=== PATIENT | female | born 1955 | race Caucasian/White ===

== ENCOUNTER 2016-12-29 16:50 | Emergency (ER) | payer SELFPAY ==
[2016-12-29 17:08] VITALS: BP 141/95; PULSE 53; TEMP 97.5; BMI 30.1
--- NOTE | 2016-12-29 17:08 | PDOC ---
Rapid Medical Evaluation Time Seen by Provider: 12/29/16 17:03 Medical Evaluation: 12/29/16 17:04 I have performed a brief in-person evaluation of this patient. The patient presents with a chief complaint of: back pain non traumatic Pertinent physical exam findings: uncomfortable. hx prolapsed uterus, ambulatory , no parathesias I have ordered the following: cbc, cmp, ua The patient will proceed to the ED for further evaluation. Discharge Disposition - Diagnosis Back pain Qualifiers: Back pain location: back pain in unspecified location Chronicity: acute Back pain laterality: unspecified Qualified Code(s): M54.9 - Dorsalgia, unspecified - Referrals - Patient Instructions - Post Discharge Activity
[2016-12-29 17:43] LABS: BASOPHIL 0.5 % (0-2.0); EOSINOPHIL 2.5 % (0-4.5); MCH 31.7 pg (25.7-33.7); MCHC 33.8 g/dl (32.0-36.0); MEAN CELL VOLUME 93.9 fl (80-96); MEAN PLT VOLUME 8.3 fl (7.5-11.1); NEUTROPHILS 57.7 % (42.8-82.8); PLATELET COUNT 275 K/MM3 (134-434); RDW 13.4 % (11.6-15.6); WHITE BLOOD COUNT 6.2 K/mm3 (4.0-10.0)
[2016-12-29 17:54] LABS: URINE APPEARANCE CLEAR; URINE BILIRUBIN NEGATIVE (NEGATIVE); URINE BLOOD NEGATIVE (NEGATIVE); URINE COLOR STRAW; URINE GLUCOSE (UA) NEGATIVE (NEGATIVE); URINE KETONE NEGATIVE (NEGATIVE); URINE NITRITE NEGATIVE (NEGATIVE); URINE PROTEIN NEGATIVE (NEGATIVE); URINE UROBILINOGEN NEGATIVE mg/dL (0.2-1.0)
--- NOTE | 2016-12-29 18:07 | PDOC ---
History of Present Illness - General Chief Complaint: Pain Stated Complaint: BACK PAIN Time Seen by Provider: 12/29/16 17:03 - History of Present Illness Initial Comments: 12/29/16 18:07 CHIEF COMPLAINT: low back pain HISTORY OF PRESENT ILLNESS: 61 yo F with hx of uterine prolapse, "borderline diabetes" presents to [facility] with low back pain x 1 week. 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 Her pain started prior to her travels but worsened after the train ride over here. Patient reports the pain is worse when twisting her torso and when getting up from a seated position. She denies any loss of sensation to her lower extremities or any loss of bowel or bladder function. PAST MEDICAL HISTORY: Denies past medical history FAMILY HISTORY: Denies SOCIAL HISTORY:Denies tobacco, alcohol, illicit drug use. SURGICAL HISTORY: Denies ALLERGIES: No known drug allergies REVIEW OF SYSTEMS General/Constitutional: Denies fever or chills. Denies weakness. HEENT: Denies change in vision. Denies ear pain or discharge. Denies sore throat. Cardiovascular: Denies chest pain or shortness of breath. Respiratory: Denies cough, wheezing, or hemoptysis. Gastrointestinal: Denies loss of bowel or bladder finction. Denies nausea, vomiting, diarrhea. Genitourinary: Denies dysuria, frequency, or change in urination. Musculoskeletal: Low back pain x 1 week worse with movement. Skin: Denies rash or easy bruising. Neurologic: Denies headache, vertigo, loss of consciousness, or loss of sensation. PHYSICAL EXAM General Appearance: Well-appearing, appropriately dressed. No apparent distress. HEENT: EOMI, PERRLA. No conjunctival pallor. No photophobia, scleral icterus. Respiratory/Chest: Lungs CTAB. Cardiovascular: RRR. S1, S2. Vascular Pulses: Dorsalis-Pedis (R): 2+, Dorsalis-Pedis (L): 2+ Gastrointestinal/Abdominal: Normal bowel sounds. Abdomen soft, non-distended. No tenderness or rebound tenderness. No organomegaly, pulsatile mass, guarding , hernia, hepatomegaly, splenomegaly. Musculoskeletal/Extremities: Reproducible tenderness with palpation to low back over muscles lateral to b/l sides of spine. Sensory discrimination intact to lower extremities b/l. FROM of all extremities, normal capillary refill. Pelvis Stable. No CVA tenderness. No tenderness to extremities, pedal edema, swelling, erythema or deformity. Integumentary: Appropriate color, dry, warm. No cyanosis, erythema, jaundice or rash Neurologic: marketing programs specialist II-XII intact. Fully oriented, alert. Appropriate mood/affect. Motor strength 5/5. No appreciable EOM palsy, facial droop or sensory deficit. Past History - Past Medical History Allergies/Adverse Reactions: Allergies Allergy/AdvReac Type Severity Reaction Status Date / Time No Known Allergies Allergy Verified 12/29/16 17:07 Home Medications: Ambulatory Orders Cyclobenzaprine HCl 7.5 mg PO HS PRN #5 tablet 12/29/16 Naproxen 250 mg PO BID #14 tablet 12/29/16 COPD: No Diabetes: No (diet controlled) - Suicide/Smoking/Psychosocial Hx Smoking History: Never smoked *Physical Exam - Vital Signs Last Vital Signs Temp Pulse Resp BP Pulse Ox 97.5 F L 53 L 20 141/95 99 12/29/16 17:04 12/29/16 17:04 12/29/16 17:04 12/29/16 17:04 12/29/16 17:04 ED Treatment Course - LABORATORY CBC & Chemistry Diagram: 12/29/16 18:10 Medical Decision Making - Medical Decision Making 12/29/16 18:29 61 yo F with hx of uterine prolapse, "borderline diabetes" presents to [facility] with low back pain x 1 week -60 mg Toradol -cyclobenzaprine and naproxen rx sent to pharm Advised patient to take medication as prescribed and follow up with orthopedics if pain persists past 3-5 daysd. Advised patient and son of signs and symptoms for return to ED. Patient verbalized understanding and agrees to plan. *DC/Admit/Observation/Transfer Diagnosis at time of Disposition: Back pain Qualifiers: Back pain location: back pain in unspecified location Chronicity: acute Back pain laterality: unspecified Qualified Code(s): M54.9 - Dorsalgia, unspecified - Discharge Dispostion Disposition: HOME Condition at time of disposition: Stable Admit: No - Prescriptions Prescriptions: Cyclobenzaprine HCl 7.5 mg PO HS PRN #5 tablet PRN Reason: muscle spasm Naproxen 250 mg PO BID #14 tablet - Referrals Referrals: Jagdeep Corral MD [Staff Physician] - - Patient Instructions Printed Discharge Instructions: DI for Low Back Pain, DI for Muscle Strain Additional Instructions: Please take medications as prescribed, do NOT drive, operate machinery, or drink alcohol while taking cyclobenzaprine. Follow up with orthopedics if symptoms persist past 3-5 days. If you develop ANY loss of sensation to your legs, loss of bowel or bladder function, inability to walk, or any new or worsening symptoms, please return to the ER. Labette los medicamentos segn lo recetado. NO maneje, opere maquinaria o ray alcohol mientras joaquín cyclobenzaprine. Corinne un seguimiento con ortopedia si los sntomas persisten despus de 3-5 frazier. Si desarrolla CUALQUIER prdida de sensibilidad en las piernas, prdida de la funcin intestinal o de la vejiga, incapacidad para caminar o cualquier sntoma nuevo o que empeora, vuelva a la tutu de emergencias. Print Language: NEPALI - Post Discharge Activity
[2016-12-29] MEDS ORDERED: KETOROLAC TROMETHAMINE 60 MG/2 ML VIAL IM ONE (18:21)
[2016-12-29] MEDS ORDERED: KETOROLAC TROMETHAMINE 60 MG/2 ML VIAL ONE (18:27)
[2016-12-29 18:28] LABS: ALBUMIN 3.7 g/dl (3.4-5.0); ALK PHOS 101 U/L (45-117); ANION GAP 6 (8-16); BILIRUBIN,TOTAL 0.8 mg/dL (0.2-1.0); CALCIUM 8.3 mg/dL (8.5-10.1); CO2 27 mmol/L (21-32); CREATININE 0.7 mg/dL (0.55-1.02); GLUCOSE,RANDOM 97 mg/dL (74-106); SGOT/AST 13 U/L (15-37); SGPT/ALT 30 U/L (12-78); TOT PROT 7.3 g/dl (6.4-8.2)
[2016-12-29 22:19] LABS: URINE LEUK ESTERASE 3+ (NEGATIVE)
[2016-12-30 00:27] LABS: URINE BACTERIA MOD /hpf (NEGATIVE)
== END 2016-12-29 18:37 | disposition home or self-care (01) ==
LOC: JERFT 16:50
PROC: 3E0233Z Introduction of Anti-inflammatory into Muscle, Percutaneous Approach (ICD-10-PCS; principal; 2016-12-29)
DX: M54.89 Other dorsalgia (principal); E11.9 Type 2 diabetes mellitus without complications
CPT/HCPCS: 36415; 80053; 81003; 81015; 85025; 99281-25

== ENCOUNTER 2020-07-16 06:03 | Inpatient (IN) | payer OTHER ==
[2020-07-16] MEDS ORDERED: SODIUM CHLORIDE 1,000 ML IV STA ×2 (07:44→12:38)
[2020-07-16] MEDS ORDERED: ONDANSETRON 4 MG/2 ML VIAL IVPUSH ONE (07:44)
[2020-07-16] MEDS ORDERED: ACETAMINOPHEN 1000 MG/100 ML VIAL (NON FORMULARY) IVPB ONE (07:44)
[2020-07-16] MEDS ORDERED: FAMOTIDINE 20 MG TABLET PO ONE (07:44)
[2020-07-16] MEDS ORDERED: ONDANSETRON 4 MG/2 ML VIAL ONE (07:50)
[2020-07-16] MEDS ORDERED: ACETAMINOPHEN INJECTION 100 ML IVPB ONE (07:50)
[2020-07-16] MEDS ORDERED: FAMOTIDINE 20 MG/50 ML IVPB 20 MG/50 ML MG IVPB ONE (07:50)
[2020-07-16 08:33] LABS: BASO % 0.3 % (0-2.0); EOS % 0.1 % (0-4.5); HEMATOCRIT 39.4 % (32.4-45.2); HEMOGLOBIN 13.2 GM/dL (10.7-15.3); LYMPH % 6.5 % (8-40); MCH 32.8 pg (25.7-33.7); MCHC 33.6 g/dl (32.0-36.0); MEAN CELL VOLUME 97.6 fl (80-96); MEAN PLT VOLUME 8.7 fl (7.5-11.1); MONO % 3.9 % (3.8-10.2); NEUT % 89.2 % (42.8-82.8); PLATELET COUNT 215 K/MM3 (134-434); RBC 4.04 M/mm3 (3.60-5.2); RDW 14.9 % (11.6-15.6); WHITE BLOOD COUNT 8.9 K/mm3 (4.0-10.0)
[2020-07-16 08:58] LABS: CHLORIDE 108 mmol/L (98-107); SODIUM 139 mmol/L (136-145)
[2020-07-16 09:01] LABS: CALCIUM 8.7 mg/dL (8.5-10.1)
[2020-07-16 09:03] LABS: ANION GAP 8 MMOL/L (8-16); BLOOD UREA NITROGEN 15.6 mg/dL (7-18); CO2 23 mmol/L (21-32); GLUCOSE,RANDOM 137 mg/dL (74-106)
[2020-07-16 09:05] LABS: CREATININE 0.6 mg/dL (0.55-1.3); SGPT/ALT 792 U/L (13-61)
[2020-07-16 09:06] LABS: BILIRUBIN,TOTAL 1.6 mg/dL (0.2-1)
[2020-07-16 09:07] LABS: TOT PROT 7.7 g/dl (6.4-8.2)
[2020-07-16 09:08] LABS: ALK PHOS 118 U/L (45-117)
[2020-07-16 09:13] LABS: LIPASE > 30000 U/L (73-393); SGOT/AST 1268 U/L (15-37)
[2020-07-16] MEDS ORDERED: MORPHINE SULFATE 2 MG/ML VIAL ONE ×2 (09:14→13:09)
[2020-07-16] MEDS ORDERED: morphine CARPU-JECT 4 MG/1 ML DISP.SYRIN IVPUSH ONE ×2 (09:17→13:05)
[2020-07-16 11:53] LABS: INR 1.03 (0.83-1.09); PROTHROMBIN TIME (PATIENT) 12.6 SEC (9.7-13.0)
[2020-07-16] MEDS ORDERED: PIPERACILLIN/TAZOB 3.375 GM 3.375 GM in DEXTROSE 5%-WATER - 50 ML IVPB ONE (12:39)
[2020-07-16 16:20] LABS: TRIGLYCERIDES 118 mg/dL (0-150)
[2020-07-16] MEDS: LACTATED RINGERS SOLUTION 1,000 ML/1,000 ML INFUS.BAG IV SCH ×2 (17:05→22:30)
[2020-07-16] MEDS ORDERED: ONDANSETRON 4 MG/2 ML VIAL IVPUSH PRN (17:58)
[2020-07-16] MEDS ORDERED: PIPERACILLIN/TAZOB 3.375 GM 3.375 GM in DEXTROSE 5%-WATER - 50 ML IVPB SCH (18:00)
[2020-07-16 18:09] VITALS: BMI 32.0
[2020-07-16] MEDS ORDERED: PIPERACILLIN/TAZOBACTAM 3.375 GM VIAL IVPB ONE (18:10)
[2020-07-16] MEDS ORDERED: DEXTROSE 5%-WATER - 50 ML IVPB ONE (18:11)
[2020-07-16] MEDS: MORPHINE SULFATE 2 MG/ML VIAL IVPUSH PRN (18:12)
[2020-07-16] MEDS: PIPERACILLIN/TAZOB 3.375 GM 3.375 GM in DEXTROSE 5%-WATER - 50 ML IVPB SCH (18:13)
[2020-07-16 20:26] LABS: HEMATOCRIT 33.5 % (32.4-45.2); HEMOGLOBIN 11.3 GM/dL (10.7-15.3); MCH 32.8 pg (25.7-33.7); MCHC 33.8 g/dl (32.0-36.0); MEAN CELL VOLUME 97.2 fl (80-96); MEAN PLT VOLUME 8.9 fl (7.5-11.1); PLATELET COUNT 186 K/MM3 (134-434); RBC 3.45 M/mm3 (3.60-5.2); RDW 14.7 % (11.6-15.6); WHITE BLOOD COUNT 8.9 K/mm3 (4.0-10.0)
[2020-07-16 20:39] LABS: BILIRUBIN,DIRECT 0.9 mg/dL (0.0-0.2)
[2020-07-16 20:42] LABS: BILIRUBIN,TOTAL 2.3 mg/dL (0.2-1); TOT PROT 6.2 g/dl (6.4-8.2)
[2020-07-16 20:43] LABS: ALBUMIN 3.2 g/dl (3.4-5.0)
[2020-07-16] MEDS: INSULIN SLIDING SCALE (NOVOLOG) 1 VIAL SQ SCH (21:19)
[2020-07-17] MEDS ORDERED: PIPERACILLIN/TAZOBACTAM 3.375 GM VIAL IVPB ONE ×3 (01:14→17:24)
[2020-07-17] MEDS ORDERED: DEXTROSE 5%-WATER - 50 ML IVPB ONE ×3 (01:15→17:24)
[2020-07-17] MEDS: PIPERACILLIN/TAZOB 3.375 GM 3.375 GM in DEXTROSE 5%-WATER - 50 ML IVPB SCH ×3 (01:18→17:36)
[2020-07-17] MEDS: LACTATED RINGERS SOLUTION 1,000 ML/1,000 ML INFUS.BAG IV SCH ×4 (02:30→14:46)
[2020-07-17] MEDS: INSULIN SLIDING SCALE (NOVOLOG) 1 VIAL SQ SCH ×4 (06:17→22:18)
[2020-07-17] MEDS: MORPHINE SULFATE 2 MG/ML VIAL IVPUSH PRN ×3 (08:25→21:47)
[2020-07-17 08:26] LABS: BASO % 0.4 % (0-2.0); EOS % 1.3 % (0-4.5); HEMATOCRIT 31.1 % (32.4-45.2); HEMOGLOBIN 10.7 GM/dL (10.7-15.3); LYMPH % 20.3 % (8-40); MCH 33.4 pg (25.7-33.7); MCHC 34.3 g/dl (32.0-36.0); MEAN CELL VOLUME 97.3 fl (80-96); MEAN PLT VOLUME 8.8 fl (7.5-11.1); MONO % 4.5 % (3.8-10.2); NEUT % 73.5 % (42.8-82.8); PLATELET COUNT 167 K/MM3 (134-434); RBC 3.19 M/mm3 (3.60-5.2); RDW 14.8 % (11.6-15.6); WHITE BLOOD COUNT 6.9 K/mm3 (4.0-10.0)
[2020-07-17 08:30] LABS: INR 1.26 (0.83-1.09); PROTHROMBIN TIME (PATIENT) 15.2 SEC (9.7-13.0)
[2020-07-17 08:48] LABS: MAGNESIUM 2.1 mg/dL (1.8-2.4)
[2020-07-17 08:50] LABS: ALBUMIN 2.9 g/dl (3.4-5.0)
[2020-07-17 08:51] LABS: BLOOD UREA NITROGEN 7.4 mg/dL (7-18)
[2020-07-17 08:54] LABS: CREATININE 0.5 mg/dL (0.55-1.3)
[2020-07-17 08:55] LABS: BILIRUBIN,TOTAL 2.4 mg/dL (0.2-1); TOT PROT 5.5 g/dl (6.4-8.2)
[2020-07-17] MEDS: DEXTROSE 5%-NORMAL SALINE 1,000 ML IV SCH (17:35)
[2020-07-18] MEDS: DEXTROSE 5%-NORMAL SALINE 1,000 ML IV SCH (05:30)
[2020-07-18] MEDS: INSULIN SLIDING SCALE (NOVOLOG) 1 VIAL SQ SCH ×4 (06:45→21:23)
[2020-07-18 09:49] LABS: BASO % 0.3 % (0-2.0); EOS % 2.9 % (0-4.5); HEMATOCRIT 33.1 % (32.4-45.2); HEMOGLOBIN 11.4 GM/dL (10.7-15.3); LYMPH % 18.7 % (8-40); MCH 33.3 pg (25.7-33.7); MCHC 34.5 g/dl (32.0-36.0); MEAN CELL VOLUME 96.6 fl (80-96); MEAN PLT VOLUME 8.8 fl (7.5-11.1); MONO % 5.6 % (3.8-10.2); NEUT % 72.5 % (42.8-82.8); PLATELET COUNT 192 K/MM3 (134-434); RBC 3.42 M/mm3 (3.60-5.2); RDW 14.3 % (11.6-15.6); WHITE BLOOD COUNT 5.4 K/mm3 (4.0-10.0)
[2020-07-18 10:44] LABS: BLOOD UREA NITROGEN 6.5 mg/dL (7-18); CALCIUM 7.7 mg/dL (8.5-10.1)
[2020-07-18 10:45] LABS: ALBUMIN 3.2 g/dl (3.4-5.0)
[2020-07-18 10:47] LABS: CREATININE 0.4 mg/dL (0.55-1.3)
[2020-07-18 10:48] LABS: BILIRUBIN,TOTAL 1.5 mg/dL (0.2-1)
[2020-07-18 10:49] LABS: TOT PROT 6.2 g/dl (6.4-8.2)
[2020-07-18] MEDS: AMINO ACIDS 4.25%/D5W 1,000 ML IV SCH (15:21)
[2020-07-18] MEDS ORDERED: INSULIN (NOVOLOG) ASPART 100 UNITS/ML 10ML VIAL ONE (21:15)
[2020-07-18] MEDS: HEPARIN NA (PORCINE) 5,000 UNITS/ML 1ML VIAL SQ SCH (21:26)
[2020-07-19] MEDS: AMINO ACIDS 4.25%/D5W 1,000 ML IV SCH (03:00)
[2020-07-19] MEDS: INSULIN SLIDING SCALE (NOVOLOG) 1 VIAL SQ SCH ×3 (06:06→21:12)
[2020-07-19] MEDS ORDERED: BUPIVACAINE HCL/PF 0.5% (5MG/ML) 10 ML VIAL ONE (07:41)
[2020-07-19] MEDS ORDERED: BENZOIN/ALOE VERA/STORAX/TOLU 58 ML BOTTLE ONE (07:48)
[2020-07-19] MEDS ORDERED: EPHEDRINE SULFATE/0.9% NACL/PF 50 MG/10 ML SYRINGE NR ONE (08:10)
[2020-07-19] MEDS ORDERED: LIDOCAINE HCL/PF 2% SDV 5ML VIAL ONE (08:10)
[2020-07-19] MEDS ORDERED: ROCURONIUM BROMIDE 50 MG/5 ML SYRINGE ONE (08:11)
[2020-07-19] MEDS ORDERED: MIDAZOLAM HCL 2 MG/2 ML SINGLE DOSE VIAL ONE (08:11)
[2020-07-19] MEDS ORDERED: PROPOFOL 20 ML ONE (08:11)
[2020-07-19 08:35] LABS: BASO % 0.6 % (0-2.0); EOS % 3.3 % (0-4.5); HEMATOCRIT 38.2 % (32.4-45.2); HEMOGLOBIN 13.1 GM/dL (10.7-15.3); LYMPH % 27.6 % (8-40); MCH 32.9 pg (25.7-33.7); MCHC 34.3 g/dl (32.0-36.0); MEAN CELL VOLUME 96.1 fl (80-96); MONO % 5.5 % (3.8-10.2); PLATELET COUNT 240 K/MM3 (134-434); RBC 3.97 M/mm3 (3.60-5.2); RDW 14.1 % (11.6-15.6); WHITE BLOOD COUNT 4.9 K/mm3 (4.0-10.0)
[2020-07-19 08:41] LABS: INR 1.03 (0.83-1.09); PROTHROMBIN TIME (PATIENT) 12.5 SEC (9.7-13.0)
[2020-07-19] MEDS: HEPARIN NA (PORCINE) 5,000 UNITS/ML 1ML VIAL SQ SCH ×2 (09:01→21:13)
[2020-07-19 09:05] LABS: ALBUMIN 3.6 g/dl (3.4-5.0); BLOOD UREA NITROGEN 10.4 mg/dL (7-18); CALCIUM 8.6 mg/dL (8.5-10.1); MAGNESIUM 2.2 mg/dL (1.8-2.4)
[2020-07-19 09:06] LABS: ALBUMIN 3.6 g/dl (3.4-5.0)
[2020-07-19 09:08] LABS: CREATININE 0.5 mg/dL (0.55-1.3)
[2020-07-19 09:09] LABS: BILIRUBIN,DIRECT 0.3 mg/dL (0.0-0.2)
[2020-07-19 09:10] LABS: BILIRUBIN,TOTAL 1.5 mg/dL (0.2-1); TOT PROT 7.4 g/dl (6.4-8.2)
[2020-07-19 09:11] LABS: BILIRUBIN,TOTAL 1.6 mg/dL (0.2-1); TOT PROT 7.5 g/dl (6.4-8.2)
[2020-07-19] MEDS ORDERED: BUPIVACAINE HCL/PF 0.5% (5MG/ML) 10 ML VIAL NR ONE ×4 (09:34→11:18)
[2020-07-19] MEDS ORDERED: ceFAZolin 2 GRAM PREMIX BAG IVPB ONE ×2 (09:34→10:29)
[2020-07-19] MEDS ORDERED: HYDROmorphone HCl 2 MG/ML VIAL ONE (10:19)
[2020-07-19] MEDS ORDERED: ONDANSETRON 4 MG/2 ML VIAL ONE ×2 (10:20→11:30)
[2020-07-19] MEDS ORDERED: DEXAMETHASONE SOD PHOSPHATE 4 MG/1 ML VIAL ONE (10:20)
[2020-07-19] MEDS ORDERED: ceFAZolin SODIUM 1 GM VIAL ONE (10:28)
[2020-07-19] MEDS ORDERED: NEOSTIGMINE METHYLSULFATE 0.5 MG/1 ML - 10 ML MDV ONE (11:17)
[2020-07-19] MEDS ORDERED: GLYCOPYRROLATE 0.2 MG/1 ML VIAL ONE (11:17)
[2020-07-19] MEDS ORDERED: oxyCODONE HCL 5 MG TABLET PO PRN (11:41)
[2020-07-19] MEDS ORDERED: LACTATED RINGERS SOLUTION 1,000 ML IV SCH ×2 (11:45→12:07)
[2020-07-19] MEDS ORDERED: MORPHINE SULFATE 2 MG/ML VIAL IVPUSH PRN (12:07)
[2020-07-19] MEDS ORDERED: ONDANSETRON 4 MG/2 ML VIAL IVPUSH PRN (12:07)
[2020-07-19] MEDS ORDERED: AMINO ACIDS 4.25%/D5W 1,000 ML IV SCH (14:30)
[2020-07-19] MEDS: oxyCODONE HCL 5 MG TABLET PO PRN ×2 (16:02→21:10)
[2020-07-19] MEDS ORDERED: INSULIN (NOVOLOG) ASPART 100 UNITS/ML 10ML VIAL ONE (21:00)
[2020-07-20 09:09] LABS: BASO % 0.3 % (0-2.0); EOS % 0.5 % (0-4.5); HEMATOCRIT 35.4 % (32.4-45.2); HEMOGLOBIN 12.2 GM/dL (10.7-15.3); LYMPH % 22.8 % (8-40); MCH 32.5 pg (25.7-33.7); MCHC 34.4 g/dl (32.0-36.0); MEAN CELL VOLUME 94.5 fl (80-96); MEAN PLT VOLUME 8.4 fl (7.5-11.1); NEUT % 70.4 % (42.8-82.8); PLATELET COUNT 276 K/MM3 (134-434); RBC 3.75 M/mm3 (3.60-5.2); RDW 14.1 % (11.6-15.6); WHITE BLOOD COUNT 6.7 K/mm3 (4.0-10.0)
[2020-07-20 09:32] LABS: CALCIUM 8.5 mg/dL (8.5-10.1)
[2020-07-20 09:33] LABS: ALBUMIN 3.6 g/dl (3.4-5.0); BLOOD UREA NITROGEN 7.5 mg/dL (7-18); MAGNESIUM 2.1 mg/dL (1.8-2.4)
[2020-07-20 09:36] LABS: ALBUMIN 3.6 g/dl (3.4-5.0); CREATININE 0.6 mg/dL (0.55-1.3)
[2020-07-20 09:37] LABS: TOT PROT 7.3 g/dl (6.4-8.2)
[2020-07-20 09:39] LABS: BILIRUBIN,DIRECT 0.3 mg/dL (0.0-0.2)
[2020-07-20] MEDS: HEPARIN NA (PORCINE) 5,000 UNITS/ML 1ML VIAL SQ SCH (09:39)
[2020-07-20 09:41] LABS: BILIRUBIN,TOTAL 1.2 mg/dL (0.2-1); TOT PROT 7.4 g/dl (6.4-8.2)
[2020-07-20] MEDS ORDERED: ACETAMINOPHEN 325 MG TABLET (FP) PO PRN (10:38)
[2020-07-20] MEDS ORDERED: POTASSIUM CHLORIDE TABS 20 MEQ TABLET.ER (FP) PO ONE (10:45)
[2020-07-20] MEDS: INSULIN SLIDING SCALE (NOVOLOG) 1 VIAL SQ SCH (11:22)
[2020-07-20 14:35] VITALS: BP 139/71; PULSE 49; TEMP 98.7
== END 2020-07-20 18:39 | disposition home or self-care (01) | DRG 263 ==
LOC: JER 06:03 → JERBED 14:00 → J6S 16:48
PROVIDERS: ATTEND Nurse Practitioner Family
PROC: 0FT44ZZ Resection of Gallbladder, Percutaneous Endoscopic Approach (ICD-10-PCS; principal; 2020-07-19 10:00)
DX: K85.10 Biliary acute pancreatitis without necrosis or infection (principal); M54.9 Dorsalgia, unspecified; E11.9 Type 2 diabetes mellitus without complications; M81.0 Age-related osteoporosis without current pathological fracture; E66.9 Obesity, unspecified; Z68.32 Body mass index [BMI] 32.0-32.9, adult; R10.11 Right upper quadrant pain; N81.4 Uterovaginal prolapse, unspecified; R11.2 Nausea with vomiting, unspecified; K80.70 Calculus of gallbladder and bile duct without cholecystitis without obstruction
CPT/HCPCS: 36415; 71046-TC-FY; 74181-TC; 76705-TC; 80053; 80076; 82550; 82962; 83036; 83690; 83735; 84100; 84478; 84484; 85025; 85027; 85610; 86850; 86900; 86901; 88304-TC; 93005; 93010; 94010; 94760; 99285-25; C9803; J0131; J1644; U0003; U0005